=== PATIENT | female | born 1960 | race Caucasian/White ===

== ENCOUNTER 2023-08-18 09:45 | Outpatient (RCR) | payer OTHER, SELFPAY | END 2023-09-16 10:55 | disposition home or self-care (01) | LOC: PURB 09:45 | PROVIDERS: ATTENDING PHYSICIAN Internal Medicine Pulmonary Disease; FAMILY PHYSICIAN Nurse Practitioner | DX: J84.10 Pulmonary fibrosis, unspecified (principal) | CPT/HCPCS: G0239 ==

== ENCOUNTER → 2023-09-22 14:01 | Outpatient (REF) | payer OTHER, SELFPAY | LOC: HWRAD 14:01 | PROVIDERS: ATTENDING PHYSICIAN Internal Medicine Pulmonary Disease; FAMILY PHYSICIAN Nurse Practitioner | DX: J84.112 Idiopathic pulmonary fibrosis (principal); J43.0 Unilateral pulmonary emphysema [MacLeod's syndrome] | CPT/HCPCS: 71250 ==

== ENCOUNTER 2023-09-22 15:21 | Outpatient (RCR) | payer SELFPAY | END 2023-09-22 23:59 | disposition home or self-care (01) | LOC: PURBM 15:21 | PROVIDERS: ATTENDING PHYSICIAN Internal Medicine Pulmonary Disease | DX: J84.112 Idiopathic pulmonary fibrosis (principal) ==

== ENCOUNTER → 2025-06-26 14:21 | Outpatient (REF) | payer OTHER, SELFPAY | LOC: HWRAD 14:21 | PROVIDERS: ATTENDING PHYSICIAN Nurse Practitioner Adult Health | DX: R06.02 Shortness of breath (principal); J84.9 Interstitial pulmonary disease, unspecified; J43.9 Emphysema, unspecified | CPT/HCPCS: 71250 ==